=== PATIENT | female | born 1965 | race American Indian/Alaskan Native ===

== ENCOUNTER 2017-02-09 13:57 | Emergency (ER) | payer SELFPAY ==
[2017-02-09] MEDS ORDERED: DELTASONE PO ONE (16:58)
[2017-02-09] MEDS ORDERED: XYLOCAINE 1% MPF 5 mL INFILTRATI ONE (16:58)
[2017-02-09] MEDS ORDERED: ROCEPHIN IM ONE (16:58)
--- NOTE | 2017-02-09 18:20 | Emergency Department Report ---
- General Chief Complaint: Upper Respiratory Infection Stated Complaint: CHEST PAIN, COUGH, COLD SYMPTOMS Time Seen by Provider: 02/09/17 16:49 Source: patient Mode of arrival: Ambulatory Limitations: No Limitations - History of Present Illness Initial Comments: Patient comes in the ER today with complaints of cough, sore throat, nasal congestion for the past 3 days. Patient been taking [id number] TheraFlu without any symptomatic relief. Patient states the cough is keeping her up at night. Patient denies any hemoptysis. Patient states symptoms started with a sore throat and has progressed into her chest. Patient states that she came into tissue on my sure she does not have pneumonia. MD Complaint: cough, sore throat, rhinorrhea, nasal congestion -: days(s) (3) - Related Data Previous Rx's Medication Instructions Recorded Last Taken Type Albuterol Sulfate [Ventolin HFA] 2 puff IH Q4H PRN #1 hfa.aer.ad 11/10/16 Unknown Rx Amoxicillin 1,000 mg PO BID #40 capsule 02/09/17 Unknown Rx Promethazine /Codeine 5 ml PO Q6H PRN #90 ml 02/09/17 Unknown Rx [Phenergan/Codeine 6.25-10 mg/5Ml] predniSONE [Deltasone] 40 mg PO QDAY 5 Days 02/09/17 Unknown Rx Allergies Allergy/AdvReac Type Severity Reaction Status Date / Time No Known Allergies Allergy Verified 11/10/16 17:04 ED Review of Systems ROS: Stated complaint: CHEST PAIN, COUGH, COLD SYMPTOMS Other details as noted in HPI Constitutional: denies: chills, fever Eyes: denies: eye pain, eye discharge, vision change ENT: throat pain, congestion. denies: ear pain Respiratory: cough. denies: shortness of breath, wheezing Cardiovascular: denies: chest pain, palpitations, edema, syncope Endocrine: no symptoms reported Gastrointestinal: denies: abdominal pain, nausea, diarrhea Genitourinary: denies: urgency, dysuria, discharge Musculoskeletal: denies: back pain, joint swelling, arthralgia Skin: denies: rash, lesions Neurological: denies: headache, weakness, paresthesias Psychiatric: denies: anxiety, depression Hematological/Lymphatic: denies: easy bleeding, easy bruising ED Past Medical Hx - Past Medical History Previous Medical History?: Yes Additional medical history: sciatica - Surgical History Past Surgical History?: Yes Additional Surgical History: X 2. TUBAL LIGATION - Social History Smoking Status: Never Smoker Substance Use Type: Alcohol, Non Opiate Pain, Prescribed, Other - Medications Home Medications: Home Medications Medication Instructions Recorded Confirmed Last Taken Type Albuterol Sulfate [Ventolin HFA] 2 puff IH Q4H PRN #1 hfa.aer.ad 11/10/16 Unknown Rx Amoxicillin 1,000 mg PO BID #40 capsule 02/09/17 Unknown Rx Promethazine /Codeine 5 ml PO Q6H PRN #90 ml 02/09/17 Unknown Rx [Phenergan/Codeine 6.25-10 mg/5Ml] predniSONE [Deltasone] 40 mg PO QDAY 5 Days 02/09/17 Unknown Rx ED Physical Exam - General Limitations: No Limitations General appearance: alert, in no apparent distress - Head Head exam: Present: atraumatic, normocephalic - Eye Eye exam: Present: normal appearance, PERRL, EOMI - ENT ENT exam: Present: mucous membranes moist, TM's normal bilaterally, normal external ear exam, other (bilateral nasal mucosa redness and turbinate swelling , bilateral posterior pharynx tonsillar erythematous without exudates.) - Neck Neck exam: Present: normal inspection, full ROM. Absent: tenderness, meningismus, lymphadenopathy - Respiratory Respiratory exam: Present: normal lung sounds bilaterally, rhonchi (rhonchi throughout all breath sounds.). Absent: respiratory distress, wheezes, rales, decreased breath sounds - Cardiovascular Cardiovascular Exam: Present: regular rate, normal rhythm. Absent: systolic murmur, diastolic murmur, rubs, gallop - GI/Abdominal GI/Abdominal exam: Present: soft, normal bowel sounds. Absent: tenderness - Extremities Exam Extremities exam: Present: normal inspection - Back Exam Back exam: Present: normal inspection - Neurological Exam Neurological exam: Present: alert, oriented X3 - Psychiatric Psychiatric exam: Present: normal affect, normal mood - Skin Skin exam: Present: warm, dry, intact, normal color. Absent: rash ED Course Vital Signs 02/09/17 14:17 Temperature 98.7 F Pulse Rate 75 Respiratory 20 Rate Blood Pressure 148/88 O2 Sat by Pulse 100 Oximetry ED Medical Decision Making - Radiology Data Radiology results: image reviewed interpreted by me: Personal interpretation of x-ray results reveal increased bronchial markings suggestive of bronchitis. No obvious infiltrate noted - Medical Decision Making Patient is nontoxic and hemodynamically stable. X-ray results discussed with the patient in the room. I'll start patient on medications appropriately and continued to excuse patient from work for the next 2 days. Patient is in agreement with treatment plan and patient is stable for discharge. Critical care attestation.: If time is entered above; I have spent that time in minutes in the direct care of this critically ill patient, excluding procedure time. ED Disposition Clinical Impression: Sinusitis, Bronchitis Disposition: DC-01 TO HOME OR SELFCARE Is pt being admited?: No Does the pt Need Aspirin: No Condition: Good Instructions: Acute Bronchitis (ED), Sinusitis (ED) Prescriptions: Amoxicillin 1,000 mg PO BID #40 capsule predniSONE [Deltasone] 40 mg PO QDAY 5 Days Promethazine /Codeine [Phenergan/Codeine 6.25-10 mg/5Ml] 5 ml PO Q6H PRN #90 ml PRN Reason: cough Referrals: PRIMARY CARE, [Primary Care Provider] - 3-5 Days Forms: Work/School Release Form(ED) Time of Disposition: 18:23
[2017-02-09 18:36] VITALS: BP 149/96
--- NOTE | 2017-02-10 09:09 | XRay Report ---
ROUTINE CHEST, TWO VIEWS: History: Cough. PA and lateral views demonstrate the heart and mediastinal contour to be of normal size and shape. The lungs are clear and fully expanded and the soft tissues and bony structures are normal. IMPRESSION: Normal study.
== END 2017-02-09 18:34 | disposition home or self-care (01) ==
LOC: ED 13:57
DX: J32.9 Chronic sinusitis, unspecified (principal); J40 Bronchitis, not specified as acute or chronic
CPT/HCPCS: 71020; 96372; 99283; J0696; J7512

== ENCOUNTER 2017-03-24 21:15 | Emergency (ER) | payer SELFPAY ==
--- NOTE | 2017-03-25 02:48 | XRay Report ---
FINAL REPORT EXAM: XR HAND 3+V RT HISTORY: hand pain COMPARISON: None available. FINDINGS: Three views the right hand obtained. Moderate narrowing and hypertrophic spurring of the 1st carpometacarpal joint. Remaining joint spaces are preserved. No acute fracture or dislocation. IMPRESSION: No acute bony abnormality. Moderate degenerative changes of the 1st carpometacarpal joint.
--- NOTE | 2017-03-25 02:50 | XRay Report ---
FINAL REPORT EXAM: XR WRIST 3+V RT HISTORY: wrist pain COMPARISON: Right hand from the same date. FINDINGS: Four total images of right wrist obtained. Normal alignment of the carpal bones. No significant ulnar variance. No acute fracture dislocation. There is hypertrophic spurring and narrowing of the 1st carpometacarpal joint compatible degenerative change. The small fragment osteophyte at the joint space. IMPRESSION: Moderate degenerative changes of the 1st carpometacarpal joint. No acute fracture.
[2017-03-25] MEDS ORDERED: TRIMOX PO ONE (03:15)
[2017-03-25] MEDS ORDERED: MOTRIN PO ONE (03:15)
--- NOTE | 2017-03-25 03:17 | Emergency Department Report ---
Upper Extremity - HPI Chief Complaint: Extremity Injury, Upper Stated Complaint: FACIAL SWELLING/HAND PAIN Time Seen by Provider: 03/25/17 03:12 Upper Extremity: Right Wrist (hand and right wrist pain 4 days), Right Hand ( hand and right wrist pain 4 days) Occurred When: 4 Days Mechanism: Unsure Severity: moderate (6-10) Symptoms: No Pain with Movement, No Deformity, No Limited Range of Movement, No Numbness, No Weakness, No Swelling, No Bruising/Ecchymosis, No Laceration or Abrasion Other History: Patient here complaining of right hand and wrist pain 4 days. He said similar incident in the past but now the pain is worse. Pain 6/ 10 and aching. He is also complaining off toothache to the left upper tooth with left facial swelling that started this morning. Patient denies any facial trauma. Denies any radiation of pain to extremities. Denies any fever or chills. Denies any sore throat or difficulty swallowing. ED Review of Systems ROS: Stated complaint: FACIAL SWELLING/HAND PAIN Other details as noted in HPI Comment: All other systems reviewed and negative Constitutional: denies: chills, fever Eyes: denies: eye pain, vision change ENT: dental pain, other (left facial swelling). denies: ear pain, throat pain, hearing loss, epistaxis, congestion Respiratory: no symptoms reported Cardiovascular: denies: chest pain, palpitations, edema, syncope Gastrointestinal: denies: abdominal pain, nausea, vomiting Musculoskeletal: arthralgia. denies: back pain, joint swelling, myalgia Skin: denies: rash Neurological: denies: headache, weakness, numbness, paresthesias, confusion, abnormal gait, vertigo ED Past Medical Hx - Past Medical History Previous Medical History?: No Additional medical history: sciatica - Surgical History Past Surgical History?: Yes Additional Surgical History: X 2. TUBAL LIGATION - Family History Family history: no significant - Social History Smoking Status: Never Smoker Substance Use Type: None - Medications Home Medications: Home Medications Medication Instructions Recorded Confirmed Last Taken Type Albuterol Sulfate [Ventolin HFA] 2 puff IH Q4H PRN #1 hfa.aer.ad 11/10/16 Unknown Rx Amoxicillin 1,000 mg PO BID #40 capsule 02/09/17 Unknown Rx Promethazine /Codeine 5 ml PO Q6H PRN #90 ml 02/09/17 Unknown Rx [Phenergan/Codeine 6.25-10 mg/5Ml] predniSONE [Deltasone] 40 mg PO QDAY 5 Days 02/09/17 Unknown Rx Amoxicillin [Amoxicillin TAB] 875 mg PO BID #20 tablet 03/25/17 Unknown Rx Ibuprofen [Motrin] 600 mg PO Q8H PRN #15 tablet 03/25/17 Unknown Rx Upper Extremity Exam - Exam General: Vital signs noted. No distress. Alert and acting appropriately. This is a 51-year-old female well-nourished well-developed in no acute distress. Head and Torso: Yes HEENT Abnormality (mouth moist, no pharyngeal exudate or erythema. Uvula is midline and oral airways patent. Positive gingival enlargement, no cellulitis noted. Tender to palpate to tooth #15 and 16 with multiple dental caries. Area to right and left upper tooth with inflammation of gums.), No Neck Tenderness (no C-spine tenderness, full range of motion. No enlarged lymph nodes. Neck is supple), No Chest/Lungs Abnormality (clear to auscultate bilaterally, no rhonchi wheezes or rales.), No Abdominal Tenderness ( soft, nontender to palpate positive bowel sounds in all quadrants), No Back Tenderness (normal inspection, full range of motion. No vertebral or paraspinal tenderness) Shoulder Exam: Yes Normal Range of Motion in Shoulder, No Shoulder Tenderness, No Clavicle Tenderness, No Shoulder Deformity, No AC Joint Tenderness Elbow: Yes Normal Range of Motion in Elbow, No Elbow Tenderness, No Elbow Deformity Forearm: No Forearm Tenderness, No Forearm Deformity, No Pain with Pronation, No Pain with Supination Wrist: Yes Normal ROM in Wrist, No Wrist Tenderness, No Wrist Deformity, No Snuffbox Tenderness, No Pain with Axial Thumb Compression Hand: Yes Normal ROM in Digit(s), No Hand Tenderness, No Hand Deformity, No Digit Tenderness, No Digit(s) Deformity, No Tendon Dysfunction CMS Exam: Yes Normal Distal Pulses, Yes Normal Capillary Refill, Yes Normal Distal Sensation, No Broken Skin ED Course Vital Signs 03/24/17 21:24 Temperature 98.7 F Pulse Rate 76 Respiratory 16 Rate Blood Pressure 146/98 O2 Sat by Pulse 100 Oximetry Vital Signs 03/24/17 03/25/17 03/25/17 21:24 03:30 03:35 Temperature 98.7 F 98.8 F Pulse Rate 76 78 Respiratory 16 18 18 Rate Blood Pressure 146/98 Blood Pressure 140/86 [Left] O2 Sat by Pulse 100 99 Oximetry - Reevaluation(s) Reevaluation #1: 03/25/17 03:19 Patient received Motrin in the emergency room for toothache and arthralgia and amoxicillin. For gingivitis and poor oral care ED Medical Decision Making - Radiology Data Radiology results: report reviewed X-ray right hand and wrist reveal no acute sure dislocation but moderate degenerative changes of the first carprometacarpal joint. - Medical Decision Making ED course: I explained to patient that her right hand and wrist does not show any acute abnormalities for fracture or dislocation but she has degenerative changes which is arthritis in her hand and wrist and will need to follow-up with orthopedic doctor. She was given Motrin for toothache and arthritic pain and first dose of amoxicillin and for gingivitis and dental caries. I explained to patient that she will need to follow-up with a dentist which will be [facility] for treatment of gingivitis and dental caries. Patient was on a standard discharge instructions and discharged home in stable condition. Critical care attestation.: If time is entered above; I have spent that time in minutes in the direct care of this critically ill patient, excluding procedure time. ED Disposition Clinical Impression: Arthralgia of multiple sites, Gingivitis, Dental caries, Toothache Osteoarthritis, multiple sites Qualifiers: Osteoarthritis type: unspecified Qualified Code(s): M15.9 - Polyosteoarthritis , unspecified Disposition: TO HOME OR SELFCARE Is pt being admited?: No Does the pt Need Aspirin: No Condition: Stable Instructions: Dental Caries (ED), Gingivitis (ED), Osteoarthritis (ED), Arthralgia (ED), Toothache (ED) Additional Instructions: Please follow up with primary care as recommended Increase fluid intake Take medication as prescribed . Referred to discharge instruction in [facility]. These follow-up with orthopedic doctor as instructed. These follow-up with [facility] as instructed If you do not have a primary care physician, please follow up at [facility]. Prescriptions: Amoxicillin [Amoxicillin TAB] 875 mg PO BID #20 tablet Ibuprofen [Motrin] 600 mg PO Q8H PRN #15 tablet PRN Reason: Pain Referrals: PRIMARY CAREMD [Primary Care Provider] - 3-5 Days [facility] [Outside] - 3-5 Days [facility] [Outside] - 3-5 Days VEL MASON MD [Staff Physician] - 3-5 Days Forms: Work/School Release Form(ED)
[2017-03-25 03:39] VITALS: BP 140/86
== END 2017-03-25 03:35 | disposition home or self-care (01) ==
LOC: ED 21:15
DX: M15.9 Polyosteoarthritis, unspecified (principal); K05.10 Chronic gingivitis, plaque induced; K02.9 Dental caries, unspecified
CPT/HCPCS: 99283

== ENCOUNTER 2017-06-18 23:55 | Emergency (ER) | payer SELFPAY ==
--- NOTE | 2017-06-19 00:53 | XRay Report ---
FINAL REPORT PROCEDURE: XR CHEST ROUTINE 2V TECHNIQUE: PA and lateral chest radiographs were obtained. CPT 04387 HISTORY: Coughing. COMPARISON: No prior studies are available for comparison. FINDINGS: Heart: Normal. Mediastinum/Vessels: Aortic tortuosity. Lungs/Pleural space: Mild hyperinflation. Bony thorax: No acute osseous abnormality. Other: IMPRESSION: Mild hyperinflation suggests obstructive physiology. Aortic tortuosity.
[2017-06-19] MEDS ORDERED: DUONEB *Not for PRN Use IH ONE (08:46)
--- NOTE | 2017-06-19 08:48 | Emergency Department Report ---
Minor Respiratory - HPI Chief Complaint: Upper Respiratory Infection Stated Complaint: SOB, CHEST PAIN Time Seen by Provider: 06/19/17 08:37 Duration: 3 Days Severity: moderate Minor Respiratory: Yes Cough, No Rhinorrhea, No Sore Throat, No Able to Tolerate Fluids, No Ear Pain, No Sick Contacts, No Hemoptysis, No Chest Pain, No Shortness of Breath, No Fever ED Review of Systems ROS: Stated complaint: SOB, CHEST PAIN Other details as noted in HPI Comment: Unobtainable due to pts medical conditions Constitutional: no symptoms reported, see HPI. denies: chills, fever Eyes: as per HPI. denies: eye pain ENT: as per HPI. denies: ear pain, throat pain Respiratory: no symptoms reported, see HPI, cough, wheezing, other (smoker). denies: orthopnea, shortness of breath, SOB with exertion, SOB at rest, stridor Cardiovascular: as per HPI. denies: chest pain, palpitations, dyspnea on exertion, orthopnea Endocrine: no symptoms reported, see HPI. denies: excessive sweating, flushing , intolerance to cold, intolerance to heat Gastrointestinal: as per HPI. denies: abdominal pain, nausea, vomiting Genitourinary: as per HPI. denies: urgency, dysuria Musculoskeletal: as per HPI. denies: back pain Skin: as per HPI. denies: rash, lesions Neurological: as per HPI. denies: headache, weakness Psychiatric: as per HPI. denies: anxiety, depression Hematological/Lymphatic: as per HPI. denies: easy bleeding ED Past Medical Hx - Past Medical History Previous Medical History?: Yes Additional medical history: sciatica - Surgical History Past Surgical History?: Yes Additional Surgical History: X 2. TUBAL LIGATION - Social History Smoking Status: Current Some Day Smoker Substance Use Type: None Other Social History: NO HOME MEDS - Medications Home Medications: Home Medications Medication Instructions Recorded Confirmed Last Taken Type Amoxicillin 1,000 mg PO BID #40 capsule 02/09/17 Unknown Rx Promethazine /Codeine 5 ml PO Q6H PRN #90 ml 02/09/17 Unknown Rx [Phenergan/Codeine 6.25-10 mg/5Ml] predniSONE [Deltasone] 40 mg PO QDAY 5 Days 02/09/17 Unknown Rx Amoxicillin [Amoxicillin TAB] 875 mg PO BID #20 tablet 03/25/17 Unknown Rx Ibuprofen [Motrin] 600 mg PO Q8H PRN #15 tablet 03/25/17 Unknown Rx Albuterol Sulfate [Ventolin HFA] 2 puff IH Q4H PRN #1 hfa.aer.ad 06/19/17 Unknown Rx predniSONE [Deltasone] 50 mg PO QDAY #5 tab 06/19/17 Unknown Rx Minor Respiratory Exam - Exam General: Vital signs noted. No distress. Alert and acting appropriately. HEENT: Yes Moist Mucous Membranes, No Pharyngeal Erythema, No Pharyngeal Exudates, No Rhinorrhea, No Conjuctival Injection, No Frontal Tenderness, No Maxillary Tenderness Ear: Neither TM Bulge, Neither TM Erythema, Neither EAC Pain, Neither EAC Discharge Neck: Yes Supple, No Adenopathy Lungs: Yes Good Air Exchange, Yes Wheezes, No Ronchi, No Stridor, No Cough, No Labored Respirations, No Retractions, No Use of Accessory Muscles, No Other Abnormal Lung Sounds Heart: Yes Regular, No Murmur Abdomen: Yes Normal Bowel Sounds, No Tenderness, No Peritoneal Signs Skin: No Rash, No Edema Neurologic: Alert and oriented, no deficits. Musculoskeletal: Unremarkable. ED Course Vital Signs 06/19/17 06/19/17 00:17 08:24 Temperature 98.9 F 98.3 F Pulse Rate 76 73 Respiratory 22 16 Rate Blood Pressure 130/81 123/90 O2 Sat by Pulse 100 100 Oximetry - Reevaluation(s) Reevaluation #1: 06/19/17 09:17 TO ER W COUGH SEEN FOR SAME IN PAST SMOKER LIKELY UNDX COPD DISCUSSED W PT NON PRODUCTIVE NO FEVER NEEDS TO FOLLOW UP WITH PULMONOLOGY ED Medical Decision Making - EKG Data Interpretation: no acute changes - Medical Decision Making LIKELY UNDX COPD NO INFECTIION NO CP VSS NAD RT AND RX W DC POC TO HOME AND FU PULM Critical care attestation.: If time is entered above; I have spent that time in minutes in the direct care of this critically ill patient, excluding procedure time. ED Disposition Clinical Impression: Cough Disposition: DC-01 TO HOME OR SELFCARE Is pt being admited?: No Does the pt Need Aspirin: No Condition: Stable Instructions: How to Stop Smoking (ED) Additional Instructions: STOP SMOKING FOLLOW UP WITH PULMONOLOGY WE DISCUSSED MEDS ORDERED Referrals: PRIMARY CARE, [Primary Care Provider] - 3-5 Days ADELSO GRISSOM MD [Staff Physician] - 3-5 Days GAVIOTA MENSAH MD [Staff Physician] - 3-5 Days Time of Disposition: 09:19
[2017-06-19 10:00] VITALS: BP 146/102
== END 2017-06-19 09:48 | disposition home or self-care (01) ==
LOC: ED 23:55
DX: R05 Cough (principal); M54.30 Sciatica, unspecified side; F17.200 Nicotine dependence, unspecified, uncomplicated; Z98.51 Tubal ligation status
CPT/HCPCS: 71020; 93005; 93010; 94640; 96372; 99283; J2930

== ENCOUNTER 2019-08-31 11:54 | Emergency (ER) | payer OTHER ==
[2019-08-31] MEDS ORDERED: IPRATROPIUM/ALBUTEROL SULFATE 3 ML AMPUL.NEB IH ONE (14:04)
--- NOTE | 2019-08-31 14:04 | Event Note ---
ED Screening Note ED Screening Note: productive cough for 3-4 days no fever chest discomfort after frequent cough no PMHx no allergies to meds LNMP: 3 weeks ago non smoker This initial assessment/diagnostic orders/clinical plan/treatment(s) is/are subject to change based on patients health status, clinical progression and re- assessment by fellow clinical providers in the ED. Further treatment and workup at subsequent clinical providers discretion. Patient/guardian urged not to elope from the ED as their condition may be serious if not clinically assessed and managed. Initial orders include: CXR, duo neb
--- NOTE | 2019-08-31 15:17 | XRay Report ---
CHEST PA AND LATERAL VIEWS INDICATION: productive cough. COMPARISON: None available. FINDINGS: Support devices: None. Heart: Within normal limits. Lungs/Pleura: No acute pulmonary or pleural findings. IMPRESSION: 1. No acute findings. Signer Name: Martin Ohara MD Signed: 08/31/2019 3:13 PM Workstation Name: [id number]
--- NOTE | 2019-08-31 18:38 | Emergency Department Report ---
Minor Respiratory - HPI Chief Complaint: Upper Respiratory Infection Stated Complaint: FLU SYM/CHEST PAIN Time Seen by Provider: 08/31/19 14:01 Duration: 3 Days Pain Location: Chest Severity: moderate Minor Respiratory: Yes Rhinorrhea, Yes Able to Tolerate Fluids, Yes Ear Pain, Yes Cough, Yes Chest Pain, Yes Shortness of Breath, No Sore Throat, No Sick Contacts, No Hemoptysis, No Fever Other History: 53-year-old -[place] female presents to the emergency room for cough 3 days. Patient states her chest and back hurt from coughing. Patient reports that she can't breathe without coughing so much. Patient denies any fever chills no nausea no vomiting. ED Review of Systems ROS: Stated complaint: FLU SYM/CHEST PAIN Other details as noted in HPI ED Past Medical Hx - Past Medical History Previous Medical History?: No Additional medical history: sciatica - Surgical History Past Surgical History?: Yes Additional Surgical History: X 2. TUBAL LIGATION - Social History Smoking Status: Never Smoker Substance Use Type: None - Medications Home Medications: Home Medications Medication Instructions Recorded Confirmed Last Taken Type Amoxicillin 1,000 mg PO BID #40 capsule 02/09/17 Unknown Rx Promethazine /Codeine 5 ml PO Q6H PRN #90 ml 02/09/17 Unknown Rx [Phenergan/Codeine 6.25-10 mg/5Ml] Amoxicillin [Amoxicillin TAB] 875 mg PO BID #20 tablet 03/25/17 Unknown Rx Ibuprofen [Motrin] 600 mg PO Q8H PRN #15 tablet 03/25/17 Unknown Rx Benzonatate [Tessalon Perles] 100 mg PO Q8HR PRN #20 capsule 06/19/17 Unknown Rx predniSONE [Deltasone] 50 mg PO QDAY #5 tab 06/19/17 Unknown Rx Albuterol Sulfate [Ventolin HFA] 2 puff IH Q4H PRN #1 hfa.aer.ad 08/09/18 Unknown Rx Albuterol Sulfate [Proventil Hfa] 6.7 gm IH QID PRN #1 hfa.aer.ad 08/31/19 Unknown Rx guaiFENesin/CODEINE [Robitussin AC] 5 ml PO Q6H PRN #100 oral.liqd 08/31/19 Unknown Rx predniSONE [Deltasone] 20 mg PO QDAY #4 tab 08/31/19 Unknown Rx Minor Respiratory Exam - Exam General: Vital signs noted. No distress. Alert and acting appropriately. HEENT: Yes Moist Mucous Membranes, No Pharyngeal Erythema, No Pharyngeal Exudates, No Rhinorrhea, No Conjuctival Injection, No Frontal Tenderness, No Maxillary Tenderness Ear: Neither TM Bulge, Neither TM Erythema, Neither EAC Pain, Neither EAC Discharge Neck: Yes Supple, No Adenopathy Lungs: Yes Good Air Exchange, Yes Cough, No Wheezes, No Ronchi, No Stridor, No Labored Respirations, No Retractions, No Use of Accessory Muscles, No Other Abnormal Lung Sounds Heart: Yes Regular, No Murmur Abdomen: Yes Normal Bowel Sounds, No Tenderness, No Peritoneal Signs Skin: No Rash, No Edema Neurologic: Alert and oriented, no deficits. Musculoskeletal: Unremarkable. ED Course Vital Signs 08/31/19 14:02 Temperature 98.4 F Pulse Rate 75 Respiratory 18 Rate Blood Pressure 135/88 O2 Sat by Pulse 100 Oximetry ED Medical Decision Making - Radiology Data Radiology results: report reviewed Patient: AYE PEDERSON MR#: [id number] : 1965 Acct:[id number] Age/Sex: 53 / F ADM Date: 08/31/19 Loc: ED Attending Dr: Ordering Physician: YONATAN ENCINAS Date of Service: 08/31/19 Procedure(s): XR chest routine 2V Accession Number(s): [id number] cc: YONATAN ENCINAS Fluoro Time In Minutes: CHEST PA AND LATERAL VIEWS INDICATION: productive cough. COMPARISON: None available. FINDINGS: Support devices: None. Heart: Within normal limits. Lungs/Pleura: No acute pulmonary or pleural findings. IMPRESSION: 1. No acute findings. Signer Name: Martin Ohara MD Signed: 08/31/2019 3:13 PM Workstation Name: [id number] Transcribed By: PAULINA Dictated By: Martin Ohara MD Electronically Authenticated By: Martin Ohara MD Signed Date/Time: 08/31/191512 DD/ 10 TD/TT: - Medical Decision Making 53-year-old -[place] female presents to the emergency room for cough 3 days. Patient states her chest and back hurt from coughing. Patient reports that she can't breathe without coughing so much. Patient denies any fever chills no nausea no vomiting. She was actually coughing to the point where she is short of breath and not able to complete sentences. Patient's vital signs are stable satting at 100% with a respiratory rate of 18. Patient be given 5 mL to Robitussin-AC. Patient reports she has a ride. Patient will be discharged home on Robitussin before meals steroids and Proventil. Critical care attestation.: If time is entered above; I have spent that time in minutes in the direct care of this critically ill patient, excluding procedure time. ED Disposition Clinical Impression: Acute bronchitis Disposition: DC- TO HOME OR SELFCARE Is pt being admited?: No Does the pt Need Aspirin: No Condition: Stable Instructions: Acute Bronchitis (ED) Additional Instructions: Increase her fluid intake take her medications as prescribed by your body to rest. Follow-up with her primary care provider if his symptoms persist or gets worse Prescriptions: predniSONE [Deltasone] 20 mg PO QDAY #4 tab Albuterol Sulfate [Proventil Hfa] 6.7 gm IH QID PRN #1 hfa.aer.ad PRN Reason: Cough guaiFENesin/CODEINE [Robitussin AC] 5 ml PO Q6H PRN #100 oral.liqd PRN Reason: Cough Referrals: PRIMARY CAREMD [Primary Care Provider] - 3-5 Days SHAW GOMEZ MD [Staff Physician] - 3-5 Days
[2019-08-31] MEDS ORDERED: guaiFENesin/CODEINE 100-10MG ORAL LIQD 5 ML PO ONE (19:01)
[2019-08-31] MEDS: IBUPROFEN 600 MG TAB PO ONE ×2 (19:23→19:48)
[2019-08-31 19:50] VITALS: BP 140/88
== END 2019-08-31 19:49 | disposition home or self-care (01) ==
LOC: ED 11:54
DX: J20.9 Acute bronchitis, unspecified (principal); Z98.51 Tubal ligation status; Z79.1 Long term (current) use of non-steroidal anti-inflammatories (NSAID); Z98.890 Other specified postprocedural states; Z79.2 Long term (current) use of antibiotics; Z79.899 Other long term (current) drug therapy
CPT/HCPCS: 71046; 93005; 93010; 94640

== ENCOUNTER 2019-10-16 07:25 | Emergency (ER) | payer SELFPAY ==
[2019-10-16 07:33] VITALS: BP 133/102
[2019-10-16] MEDS ORDERED: diphenhydrAMINE 50 MG/ML VIAL IV ONE (09:04)
[2019-10-16] MEDS ORDERED: dexAMETHasone 20 MG/5 ML VIAL IV ONE (09:04)
[2019-10-16] MEDS ORDERED: KETOROLAC 30 MG/1 ML INJ IV ONE (09:04)
[2019-10-16] MEDS ORDERED: METOCLOPRAMIDE 10 MG/2 ML INJ IV ONE (09:04)
[2019-10-16] MEDS ORDERED: LACTATED RINGERS 1,000 ML IV ONE (09:04)
--- NOTE | 2019-10-16 09:18 | Emergency Department Report ---
ED Headache HPI - General Chief Complaint: Headache Stated Complaint: MIGRAINE, LEFT EAR PAIN Time Seen by Provider: 10/16/19 09:02 Source: patient Exam Limitations: no limitations - History of Present Illness Initial Comments: L side migraine x 4 days, hx of same with same symptoms of nausea, vomiting, photophobia but this time has intermittent numbness to L face and arm as well Timing/Duration: other (4 days) Quality: mild Head Injury Location: temporal Recent Head Trauma: frequent headaches Modifying Factors: worse with: exposure to light Associated Symptoms: nausea/vomiting. denies: loss of consciousness, stiff neck, vision changes Allergies/Adverse Reactions: Allergies No Known Allergies Allergy (Verified 11/10/16 17:04) Home Medications: Ambulatory Orders Amoxicillin 1,000 mg PO BID #40 capsule 02/09/17 Promethazine /Codeine [Phenergan/Codeine 6.25-10 mg/5Ml] 5 ml PO Q6H PRN #90 ml 02/09/17 Amoxicillin [Amoxicillin TAB] 875 mg PO BID #20 tablet 03/25/17 Ibuprofen [Motrin] 600 mg PO Q8H PRN #15 tablet 03/25/17 Benzonatate [Tessalon Perles] 100 mg PO Q8HR PRN #20 capsule 06/19/17 predniSONE [Deltasone] 50 mg PO QDAY #5 tab 06/19/17 Albuterol Sulfate [Ventolin HFA] 2 puff IH Q4H PRN #1 hfa.aer.ad 08/09/18 Albuterol Sulfate [Proventil Hfa] 6.7 gm IH QID PRN #1 hfa.aer.ad 08/31/19 guaiFENesin/CODEINE [Robitussin AC] 5 ml PO Q6H PRN #100 oral.liqd 08/31/19 predniSONE [Deltasone] 20 mg PO QDAY #4 tab 08/31/19 Butalb/Acetamin/Caff 50-325-40 [Fioricet 50-325-40] 1 tab PO Q6HR PRN #12 tab 10/16/19 ED Review of Systems ROS: Stated complaint: MIGRAINE, LEFT EAR PAIN Other details as noted in HPI Comment: All other systems reviewed and negative Neurological: as per HPI ED Past Medical Hx - Past Medical History Previous Medical History?: Yes Hx Headaches / Migraines: Yes Additional medical history: sciatica - Surgical History Past Surgical History?: Yes Additional Surgical History: X 2. TUBAL LIGATION - Social History Smoking Status: Never Smoker - Medications Home Medications: Home Medications Medication Instructions Recorded Confirmed Last Taken Type Amoxicillin 1,000 mg PO BID #40 capsule 02/09/17 Unknown Rx Promethazine /Codeine 5 ml PO Q6H PRN #90 ml 02/09/17 Unknown Rx [Phenergan/Codeine 6.25-10 mg/5Ml] Amoxicillin [Amoxicillin TAB] 875 mg PO BID #20 tablet 03/25/17 Unknown Rx Ibuprofen [Motrin] 600 mg PO Q8H PRN #15 tablet 03/25/17 Unknown Rx Benzonatate [Tessalon Perles] 100 mg PO Q8HR PRN #20 capsule 06/19/17 Unknown Rx predniSONE [Deltasone] 50 mg PO QDAY #5 tab 06/19/17 Unknown Rx Albuterol Sulfate [Ventolin HFA] 2 puff IH Q4H PRN #1 hfa.aer.ad 08/09/18 Unknown Rx Albuterol Sulfate [Proventil Hfa] 6.7 gm IH QID PRN #1 hfa.aer.ad 08/31/19 Unknown Rx guaiFENesin/CODEINE [Robitussin AC] 5 ml PO Q6H PRN #100 oral.liqd 08/31/19 Unknown Rx predniSONE [Deltasone] 20 mg PO QDAY #4 tab 08/31/19 Unknown Rx Butalb/Acetamin/Caff 50-325-40 1 tab PO Q6HR PRN #12 tab 10/16/19 Unknown Rx [Fioricet 50-325-40] ED Physical Exam - General Limitations: No Limitations General appearance: alert, in no apparent distress - Head Head exam: Present: atraumatic, normocephalic - Eye Eye exam: Present: normal appearance, PERRL, EOMI Pupils: Present: normal accommodation - ENT ENT exam: Present: normal exam, mucous membranes moist, TM's normal bilaterally - Neck Neck exam: Present: normal inspection - Respiratory Respiratory exam: Present: normal lung sounds bilaterally. Absent: respiratory distress - Cardiovascular Cardiovascular Exam: Present: regular rate, normal rhythm. Absent: systolic murmur, diastolic murmur, rubs, gallop - GI/Abdominal GI/Abdominal exam: Present: soft, normal bowel sounds - Extremities Exam Extremities exam: Present: normal inspection - Back Exam Back exam: Present: normal inspection - Neurological Exam Neurological exam: Present: alert, oriented X3, CN II-XII intact, normal gait, reflexes normal. Absent: motor sensory deficit - Psychiatric Psychiatric exam: Present: normal affect, normal mood - Skin Skin exam: Present: warm, dry, intact, normal color. Absent: rash ED Course Vital Signs 10/16/19 10/16/19 10/16/19 07:32 09:23 09:52 Temperature 97.8 F Pulse Rate 85 Respiratory 16 18 18 Rate Blood Pressure 133/102 O2 Sat by Pulse 95 Oximetry ED Medical Decision Making - Radiology Data Radiology results: report reviewed neg CT head - Medical Decision Making migraine c/w prior migraines but intermittent R arm and facial numbness no numbness to arm on exam NIHSS 0 likely complicated migraine, low suspicion for CVA given toradol, benadryl, reglan, IVF, decadron CT ordered LEZAMA completely resolved along with numbness CT negative c/w complex migraine follow up neuro no further concerns - Differential Diagnosis complex migraine, doubt CVA/SAH Critical care attestation.: If time is entered above; I have spent that time in minutes in the direct care of this critically ill patient, excluding procedure time. ED Disposition Clinical Impression: Complicated migraine Disposition: - TO HOME OR SELFCARE Is pt being admited?: No Condition: Good Instructions: Migraine Headache (ED) Prescriptions: Butalb/Acetamin/Caff 50-325-40 [Fioricet 50-325-40] 1 tab PO Q6HR PRN #12 tab PRN Reason: Headache Referrals: PRIMARY MD LALO [Primary Care Provider] - 3-[address] MATTHEWS MD [Referring] - 3-5 Days Time of Disposition: 11:50
--- NOTE | 2019-10-16 11:21 | Cat Scan Report ---
NONENHANCED CT SCAN OF THE HEAD: INDICATION / CLINICAL INFORMATION: 53 years Female; LEZAMA. TECHNIQUE: Routine CT head without contrast. All CT scans at this location are performed using CT dos e reduction for ALARA by means of automated exposure control. COMPARISON: None. FINDINGS: BRAIN / INTRACRANIAL CONTENTS: No acute hemorrhage, mass effect, midline shift, hydrocephalus, or ac bowen, large territorial infarct. No chronic infarct or focal atrophy. Age, height convexity cortical s ulci are mildly prominent suggesting mild involution. Cerebellar hemispheres. Hippocampi are normal.. No significant white matter abnormality. CRANIOCERVICAL JUNCTION: No significant abnormality. ORBITS: No significant abnormality of visualized orbits. SINUSES / MASTOIDS: No significant abnormality of the visualized paranasal sinuses or mastoid air emma ls. ADDITIONAL FINDINGS: None. IMPRESSION: No focal parenchymal lesion in the brain. Signer Name: Shae Trujillo MD Signed: 10/16/2019 11:16 AM Workstation Name: [id number]
== END 2019-10-16 12:21 | disposition home or self-care (01) ==
LOC: ED 07:25
DX: G43.909 Migraine, unspecified, not intractable, without status migrainosus (principal); Z98.51 Tubal ligation status; Z79.899 Other long term (current) drug therapy
CPT/HCPCS: 70450; 96374; 96375; 99283; J1100; J1200; J1885; J2765; J7120